=== PATIENT | male | born 1985 | race African-American/Black ===

== ENCOUNTER 2023-11-21 21:02 | Inpatient (IN) | payer OTHER ==
[2023-11-21 22:22] VITALS: BMI 30.7
[2023-11-21] MEDS ORDERED: guaiFENesin 600 MG TABLET.ER (FP) PO PRN (23:00)
[2023-11-21] MEDS ORDERED: ONDANSETRON *ODT* 4 MG TABLET SL PRN (23:00)
[2023-11-21] MEDS ORDERED: BENZONATATE 200 MG CAPSULE PO PRN (23:00)
[2023-11-21] MEDS ORDERED: NICOTINE POLACRILEX 2 MG GUM BUC PRN (23:00)
[2023-11-21] MEDS ORDERED: LOPERAMIDE HCL 2 MG CAPSULE PO PRN (23:00)
[2023-11-21] MEDS ORDERED: POLYETHYLENE GLYCOL (HEALTHYLAX) 3350 17 GM PACKET PO PRN (23:00)
[2023-11-21] MEDS ORDERED: DICYCLOMINE HCL 10 MG CAPSULE PO PRN (23:00)
[2023-11-21] MEDS ORDERED: IBUPROFEN 400 MG TABLET (FP) PO PRN (23:00)
[2023-11-21] MEDS ORDERED: IBUPROFEN 600 MG TABLET (FP) PO PRN (23:00)
[2023-11-21] MEDS ORDERED: P-EPHED 60MG/TRIPROLIDI 2.5MG TABLET PO PRN (23:00)
[2023-11-21] MEDS ORDERED: NICOTINE POLACRILEX 2 MG LOZENGE BC PRN (23:00)
[2023-11-21] MEDS ORDERED: BISMUTH SUBSALICYLATE 524 MG/30 ML PO PRN (23:00)
[2023-11-22] MEDS: chlordiazePOXIDE HCL 25 MG CAPSULE PO SCH (00:02)
[2023-11-22] MEDS: levETIRAcetam 500 MG TABLET (FP) PO SCH (00:05)
[2023-11-22] MEDS ORDERED: chlordiazePOXIDE HCL 25 MG CAPSULE ONE (10:17)
[2023-11-22] MEDS ORDERED: PRENATAL VITAMINS W/ FOLIC ACID TABLET (FP) PO ONE (10:18)
[2023-11-22] MEDS ORDERED: levETIRAcetam 500 MG TABLET (FP) PO ONE (10:18)
[2023-11-22] MEDS: PRENATAL VITAMINS W/ FOLIC ACID TABLET (FP) PO SCH (10:24)
[2023-11-22 12:12] LABS: HEMATOCRIT 33.7 % (35.4-49); HEMOGLOBIN 11.1 GM/dL (11.7-16.9); MCH 28.8 pg (25.7-33.7); MEAN CELL VOLUME 87.2 fl (80-96); MEAN PLT VOLUME 9.7 fl (7.5-11.1); PLATELET COUNT 81 10^3/uL (134-434); RBC 3.86 M/mm3 (4.00-5.60); RDW 19.8 % (11.9-15.9)
[2023-11-22 12:18] LABS: CHLORIDE 103 mmol/L (98-107); POTASSIUM 3.7 mmol/L (3.5-5.1); SODIUM 137 mmol/L (136-145)
[2023-11-22 12:28] LABS: ALBUMIN 3.4 g/dl (3.4-5.0); BLOOD UREA NITROGEN 14.9 mg/dL (7-18); CALCIUM 9.1 mg/dL (8.5-10.1); GLUCOSE,RANDOM 102 mg/dL (74-106)
[2023-11-22 12:29] LABS: ANION GAP 5 mmol/L (4-13); CO2 30 mmol/L (21-32)
[2023-11-22 12:31] LABS: CREATININE 0.8 mg/dL (0.55-1.3); SGOT/AST 64 U/L (15-37); SGPT/ALT 59 U/L (13-61)
[2023-11-22 12:32] LABS: TOT PROT 7.2 g/dl (6.4-8.2)
[2023-11-22 12:33] LABS: BILIRUBIN,TOTAL 1.3 mg/dL (0.2-1)
[2023-11-22 12:34] LABS: ALK PHOS 91 U/L (45-117)
[2023-11-22] MEDS: MELATONIN 5 MG TABLETS PO SCH (22:38)
[2023-11-22] MEDS: THIAMINE 100 MG TABLET PO SCH (22:38)
[2023-11-23] MEDS: chlordiazePOXIDE HCL 25 MG CAPSULE PO SCH (05:27)
[2023-11-23] MEDS: METHOCARBAMOL 500 MG TABLET PO PRN (10:57)
[2023-11-23] MEDS ORDERED: cloNIDine HCL 0.1 MG TABLET PO PRN (11:48)
[2023-11-23] MEDS: ACETAMINOPHEN 325 MG TABLET (FP) PO PRN (17:24)
[2023-11-23] MEDS: chlordiazePOXIDE HCL 25 MG CAPSULE PO PRN (22:14)
[2023-11-24] MEDS ORDERED: chlordiazePOXIDE HCL 10 MG CAPSULE PO PRN
[2023-11-24] MEDS: chlordiazePOXIDE HCL 10 MG CAPSULE PO SCH (05:33)
[2023-11-24] MEDS: MAG HYDROX/AL HYDROX/SIMETH 30 ML UNIT-DOSE CUP PO PRN (05:36)
[2023-11-24] MEDS: hydrOXYzine PAMOATE 25 MG CAPSULE (FP) PO PRN (22:13)
[2023-11-25] MEDS: chlordiazePOXIDE HCL 10 MG CAPSULE PO SCH (05:29)
[2023-11-25 10:24] LABS: HEMATOCRIT 37.2 % (35.4-49); HEMOGLOBIN 12.1 GM/dL (11.7-16.9); MCH 28.7 pg (25.7-33.7); MCHC 32.6 g/dl (32.0-35.9); MEAN PLT VOLUME 10.4 fl (7.5-11.1); PLATELET COUNT 136 10^3/uL (134-434); RBC 4.23 M/mm3 (4.00-5.60); RDW 19.6 % (11.9-15.9); WHITE BLOOD COUNT 6.2 K/mm3 (4.0-10.0)
[2023-11-26] MEDS: chlordiazePOXIDE HCL 10 MG CAPSULE PO ONE (05:37)
[2023-11-26] MEDS: BENZOCAINE/MENTHOL (CHLORASEPTIC ) LOZENGE MM PRN (22:40)
[2023-11-26] MEDS: MAGNESIUM HYDROX 2400MG/30ML ORAL SUSPENSION 30 ML CUP PO PRN (22:40)
[2023-11-27 08:48] VITALS: BP 115/70; PULSE 73; RESP 16; TEMP 96.9
== END 2023-11-27 11:10 | disposition other institution (70) | DRG 775 ==
LOC: YASAS 21:02 → UNDOADMIN 11-22 06:10 → Y3N 11-22 06:10 → Y6N 11-22 09:55
PROVIDERS: ADMIT Allergy & Immunology; ATTEND Surgery
PROC: HZ2ZZZZ Detoxification Services for Substance Abuse Treatment (ICD-10-PCS; principal; 2023-11-22)
DX: F10.230 Alcohol dependence with withdrawal, uncomplicated (principal); F13.20 Sedative, hypnotic or anxiolytic dependence, uncomplicated; F17.210 Nicotine dependence, cigarettes, uncomplicated; D69.6 Thrombocytopenia, unspecified; G40.909 Epilepsy, unspecified, not intractable, without status epilepticus; G47.00 Insomnia, unspecified; Z59.02 Unsheltered homelessness
CPT/HCPCS: 36415; 80053; 80305; 80307; 85027; 86780; 93005; 93010

== ENCOUNTER 2024-01-01 21:56 | Inpatient (IN) | payer OTHER ==
[2024-01-01 22:38] VITALS: BMI 29.7
[2024-01-01] MEDS ORDERED: BENZONATATE 200 MG CAPSULE PO PRN (22:47)
[2024-01-01] MEDS ORDERED: LOPERAMIDE HCL 2 MG CAPSULE PO PRN (22:47)
[2024-01-01] MEDS ORDERED: BENZOCAINE/MENTHOL (CHLORASEPTIC ) LOZENGE MM PRN (22:47)
[2024-01-01] MEDS ORDERED: NICOTINE POLACRILEX 2 MG LOZENGE BC PRN (22:47)
[2024-01-01] MEDS ORDERED: guaiFENesin 600 MG TABLET.ER (FP) PO PRN (22:47)
[2024-01-01] MEDS ORDERED: ONDANSETRON *ODT* 4 MG TABLET SL PRN (22:47)
[2024-01-01] MEDS ORDERED: NICOTINE POLACRILEX 2 MG GUM BUC PRN (22:47)
[2024-01-01] MEDS ORDERED: POLYETHYLENE GLYCOL (HEALTHYLAX) 3350 17 GM PACKET PO PRN (22:47)
[2024-01-01] MEDS ORDERED: IBUPROFEN 400 MG TABLET (FP) PO PRN (22:47)
[2024-01-01] MEDS ORDERED: DICYCLOMINE HCL 10 MG CAPSULE PO PRN (22:47)
[2024-01-01] MEDS ORDERED: MAGNESIUM HYDROX 2400MG/30ML ORAL SUSPENSION 30 ML CUP PO PRN (22:47)
[2024-01-01] MEDS ORDERED: BISMUTH SUBSALICYLATE 524 MG/30 ML PO PRN (22:47)
[2024-01-01] MEDS ORDERED: ACETAMINOPHEN 325 MG TABLET (FP) PO PRN (22:47)
[2024-01-01] MEDS ORDERED: MAG HYDROX/AL HYDROX/SIMETH 30 ML UNIT-DOSE CUP PO PRN (22:47)
[2024-01-01] MEDS ORDERED: chlordiazePOXIDE HCL 25 MG CAPSULE PO PRN (22:49)
[2024-01-01] MEDS: levETIRAcetam 500 MG TABLET (FP) PO SCH (23:38)
[2024-01-02] MEDS: chlordiazePOXIDE HCL 25 MG CAPSULE PO SCH (05:42)
[2024-01-02] MEDS: PRENATAL VITAMINS W/ FOLIC ACID TABLET (FP) PO SCH (09:45)
[2024-01-02] MEDS: METHOCARBAMOL 500 MG TABLET PO PRN (09:45)
[2024-01-02] MEDS: hydrOXYzine PAMOATE 25 MG CAPSULE (FP) PO PRN (09:45)
[2024-01-02 14:10] LABS: POTASSIUM 4.3 mmol/L (3.5-5.1)
[2024-01-02 14:12] LABS: HEMATOCRIT 35.1 % (35.4-49); HEMOGLOBIN 11.9 GM/dL (11.7-16.9); MCH 27.6 pg (25.7-33.7); MEAN CELL VOLUME 81.1 fl (80-96); MEAN PLT VOLUME 9.8 fl (7.5-11.1); PLATELET COUNT 218 10^3/uL (134-434); RBC 4.33 M/mm3 (4.00-5.60); WHITE BLOOD COUNT 6.3 K/mm3 (4.0-10.0)
[2024-01-02 14:14] LABS: ALBUMIN 3.3 g/dl (3.4-5.0); BLOOD UREA NITROGEN 6.9 mg/dL (7-18)
[2024-01-02 14:15] LABS: CALCIUM 8.8 mg/dL (8.5-10.1)
[2024-01-02 14:17] LABS: CREATININE 0.7 mg/dL (0.55-1.3)
[2024-01-02 14:19] LABS: BILIRUBIN,TOTAL 1.4 mg/dL (0.2-1); TOT PROT 7.2 g/dl (6.4-8.2)
[2024-01-02] MEDS: THIAMINE 100 MG TABLET PO SCH (22:24)
[2024-01-02] MEDS: MELATONIN 5 MG TABLETS PO SCH (22:39)
[2024-01-03] MEDS ORDERED: chlordiazePOXIDE HCL 10 MG CAPSULE PO PRN
[2024-01-03] MEDS: chlordiazePOXIDE HCL 25 MG CAPSULE PO SCH (05:15)
[2024-01-04] MEDS: chlordiazePOXIDE HCL 10 MG CAPSULE PO SCH (05:30)
[2024-01-04] MEDS: IBUPROFEN 600 MG TABLET (FP) PO PRN (10:10)
[2024-01-05] MEDS: chlordiazePOXIDE HCL 10 MG CAPSULE PO SCH (05:26)
[2024-01-06] MEDS: chlordiazePOXIDE HCL 10 MG CAPSULE PO ONE (05:32)
[2024-01-07 08:51] VITALS: BP 120/72; PULSE 85; RESP 18; TEMP 98
== END 2024-01-07 09:34 | disposition home or self-care (01) | DRG 775 ==
LOC: YASAS 21:56 → Y6N 23:07
PROVIDERS: ADMIT Allergy & Immunology; ATTEND Surgery
PROC: HZ2ZZZZ Detoxification Services for Substance Abuse Treatment (ICD-10-PCS; principal; 2024-01-01)
DX: F10.230 Alcohol dependence with withdrawal, uncomplicated (principal); F17.210 Nicotine dependence, cigarettes, uncomplicated; Z86.69 Personal history of other diseases of the nervous system and sense organs; Z56.0 Unemployment, unspecified; Z59.02 Unsheltered homelessness
CPT/HCPCS: 36415; 80053; 82247; 85027; 86780